=== PATIENT | female | born 2000 | race Hispanic/Latino ===

== ENCOUNTER 2020-08-27 16:37 | Emergency (ER) | payer SELFPAY | END 2020-08-27 19:04 | disposition left against medical advice (07) | LOC: ED 16:37 | DX: O20.9 Hemorrhage in early pregnancy, unspecified (principal); Z53.21 Procedure and treatment not carried out due to patient leaving prior to being seen by health care provider ==

== ENCOUNTER 2021-03-19 15:50 | Outpatient (CLI) | payer MEDICAID ==
[2021-03-19 16:28] VITALS: BP 123/74
[2021-03-19] MEDS ORDERED: LACTATED RINGERS 500 ML IV ONE (18:52)
--- NOTE | 2021-03-21 10:53 | Electrocardiograph Report ---
[facility] [place] Test Date: 2021-03-19 Test Time: 17:42:25 Pat Name: MANAS CARRANZA Department: Room: Gender: F Music Adapter: SAMEERA : 2000 Requested By: ISAIAS SKY Order Number: [id number] Reading MD: Dagoberto Chan Measurements Intervals [place] Rate: 99 P: 71 AL: 160 QRS: 41 QRSD: 71 T: 38 QT: 313 QTc: 401 Interpretive Statements Sinus rhythm No previous ECG available for comparison Electronically Signed On 03-21-2021 10:53:19 EDT by Dagoberto Chan
== END 2021-03-19 18:24 | disposition home or self-care (01) ==
LOC: TRG 15:50 → APU 15:52 → TRG 18:24
DX: O13.3 Gestational [pregnancy-induced] hypertension without significant proteinuria, third trimester (principal); R06.02 Shortness of breath; Z3A.34 34 weeks gestation of pregnancy
CPT/HCPCS: 59025; 93005